=== PATIENT | female | born 1950 | race Caucasian/White ===

== ENCOUNTER → 2017-02-02 | Outpatient (CLI) | payer BC ==
[~2017-02-02] MED LIST: ASPIR 8181 M1 PO; ESTRING1 EACH VG; MELATONIN5 M1 PO; METAMUCIL0.52 GM PO; PROTONIX20 MG PO; VIACTIV SOFT C1 EACH PO
[2017-02-02 09:24] LABS: HEMATOCRIT 43.8 % (36.0-46.0); MCH 30.2 PG (29.0-34.0); MCHC 32.2 G/DL (30.0-36.0); MCV 93.8 FL (83-99); MEAN PLAT.VOLUME 8.4 uM^3 (9.5-12.4); PLATELET COUNT 333 K/uL (156-360); RBC DIS.WIDTH-CV 12.2 % (11.8-14.6); RBC DIS.WIDTH-SD 41.9 % (39-53); RED BLOOD COUNT 4.67 M/uL (3.80-5.20); WHITE BLOOD COUNT 6.1 K/uL (4.1-10.2)
[2017-02-02 09:32] LABS: PROTHROMBIN TIME 10.1 (9.2-11.2); PTT 28.5 (25-32)
== END | disposition home or self-care (01) ==
LOC: OPR 08:59 → EDSTATUS 09:00
PROC: 0F923ZX Drainage of Left Lobe Liver, Percutaneous Approach, Diagnostic (ICD-10-PCS; principal; 2017-02-02)
DX: K76.89 Other specified diseases of liver (principal); I10 Essential (primary) hypertension; J45.909 Unspecified asthma, uncomplicated; E03.9 Hypothyroidism, unspecified
CPT/HCPCS: 77012; 85027; 85610; 85730; 87070; 87075; 87205; 88108; 88305; J3010

== ENCOUNTER → 2017-03-14 | Outpatient (CLI) | payer BC | END | disposition home or self-care (01) | LOC: NUC 06:44 | DX: K82.8 Other specified diseases of gallbladder (principal) | CPT/HCPCS: 78227; A9537; J2805 ==

== ENCOUNTER → 2017-10-17 | Outpatient (CLI) | payer OTHER, BC ==
[~2017-10-17] VITALS: Ht 167.6 cm; Wt 64.5 kg
[~2017-10-17] MED LIST changes: +CITRACAL + D C1 EACH PO
[2017-10-17 10:04] VITALS: BP 127/63
== END | disposition home or self-care (01) ==
LOC: IVINF 10-15 15:00
DX: M81.0 Age-related osteoporosis without current pathological fracture (principal); Z87.19 Personal history of other diseases of the digestive system
CPT/HCPCS: 96365; J3489